=== PATIENT | female | born 1955 | race African-American/Black ===

== ENCOUNTER → 2021-03-04 | Outpatient (CLI) | payer OTHER ==
--- NOTE | 2021-03-04 14:24 | KCIC ---
STUDY: MRI pelvis without contrast INDICATION: Bilateral hip arthritis with pain greater on the right. COMPARISON: None. TECHNIQUE: Multiplanar MR imaging of the pelvis performed without the use of intravenous contrast. FINDINGS: Bones: No acute fracture, stress reaction or avascular necrosis. No overt subchondral edema or cystic change at either hip. No more than mild degenerative changes at the sacroiliac joints and pubic symp hysis. Facet arthrosis on the right more so than left at L5-S1. Associated degenerative marrow edema around the right L5-S1 facet joint. On the axial sequences there is also right more so than left face t arthrosis at L4-L5 with degenerative facet edema on the right. Incomplete assessment of the neural foramina. No central canal stenosis at L5-S1 but indeterminate at L4-L5. Cartilage/labrum: The large obtained [id number] hinders close assessment of the labrum and cartila ge at the hips. No large paralabral cyst is identified to confirm the presence of a labral tear. Musculotendinous: No high-grade tendon tear or advanced tendinosis seen around either hip. Relatively symmetric ischiofemoral space. No localized muscular fatty atrophy or edema. Greater trochanteric bursa: Within normal limits. Miscellaneous: Normal volume hip joint fluid. Several uterine fibroids along the anterior body/fundus . IMPRESSION: 1. No advanced arthrosis at either hip to explain the patient's symptoms. The labrum and cartilage a re incompletely evaluated due to the large obtained [id number]. There are no secondary manifestati ons of a labral tear at either hip. 2. Incompletely characterized facet arthrosis on the right more so than left at L4-L5 and L5-S1 with associated degenerative marrow edema along the right facet joints. The study is not tailored for ass essment of any associated stenosis. MRI of the lumbar spine could be performed if clinically there is felt that the patient's symptoms are originating from this region. Electronically signed by: LIOR THOMPSON MD (03/04/2021 2:22 PM) [id number]
== END ==
LOC: KCIC MRI 10:05
PROVIDERS: ATTEND Physical Medicine & Rehabilitation Sports Medicine
DX: M16.0 Bilateral primary osteoarthritis of hip (principal); D25.9 Leiomyoma of uterus, unspecified
CPT/HCPCS: 72195